=== PATIENT | female | born 1985 | race African-American/Black ===

== ENCOUNTER 2018-12-11 17:42 | Emergency (ER) | payer MEDICARE, MEDICAID ==
[2018-12-11] MEDS ORDERED: predniSONE 20 MG TAB ONE (18:13)
[2018-12-11] MEDS ORDERED: Sodium Chloride 0.9% 1,000 ML ONE (18:13)
[2018-12-11] MEDS ORDERED: Ibuprofen 800 MG TAB ONE (18:13)
[2018-12-11 18:36] LABS: #Basophils 0.2 thou/uL (0.0-0.2); #Lymphocytes 2.3 thou/uL (1.20-3.40); #Monocytes 0.5 thou/uL (0.11-0.59); #Neutrophils 6.9 thou/uL (1.40-6.50); %Basophils 1.7 % (0.0-1.0); %Eosinophils 0.4 % (0.0-10.0); %Lymphocytes 23.1 % (21.0-51.0); %Monocytes 4.7 % (0.0-10.0); Hemoglobin 12.9 g/dL (12.0-16.0); Mean Corpuscular HGB CONC 32.8 g/dL (32.0-36.0); Mean Corpuscular Hemoglobin 30.7 pg (27.0-31.0); Mean Corpuscular Volume 93.8 fL (78.0-98.0); Mean Platelet Volume 8.6 fL (7.4-10.4); Platelet Count 250 thou/uL (130-400); RBC Distribution Width 11.4 % (11.5-14.5); Red Blood Cell (RBC) Count 4.19 mill/uL (4.20-5.40); White Blood Cell (WBC) Count 9.9 thou/uL (4.8-10.8)
[2018-12-11 18:56] LABS: ALT (SGPT) 15 U/L (8-55); AST (SGOT) 18 U/L (5-34); Albumin 4.1 g/dL (3.5-5.0); Alkaline Phosphatase 69 U/L (40-150); Anion Gap 14 mmol/L (10-20); BUN (Urea Nitrogen) 8 mg/dL (7.0-18.7); Bilirubin, Total 0.5 mg/dL (0.2-1.2); Calc. Creatinine Clearance 0 mL/min (70-130); Calcium 9.1 mg/dL (7.8-10.44); Carbon Dioxide 27 mmol/L (22-29); Chloride 105 mmol/L (98-107); Estimated GFR-MDRD 79; Globulin 3.6 g/dL (2.4-3.5); Glucose 107 mg/dL (70-105); Potassium 3.6 mmol/L (3.5-5.1); Protein, Total 7.7 g/dL (6.0-8.3); Sodium 142 mmol/L (136-145)
--- NOTE | 2018-12-11 19:16 | RAD ---
PA AND LATERAL OF THE CHEST: 12/11/18 INDICATION: History of cough. COMPARISON: Prior chest radiograph dated 09/13/04. FINDINGS: There is mild cardiomegaly. No confluent air space opacities evident. No definite pleural effusions n oted. No acute osseous abnormality is evident. IMPRESSION: Mild cardiomegaly. POS: [facility]
== END 2018-12-11 20:26 | disposition home or self-care (01) ==
LOC: MADERS 17:42
DX: J20.9 Acute bronchitis, unspecified (principal); I10 Essential (primary) hypertension; G47.30 Sleep apnea, unspecified; E66.9 Obesity, unspecified; Z79.899 Other long term (current) drug therapy
CPT/HCPCS: 71046; 80053; 83605; 83880; 84484; 85025; 87040; 87081; 87430; 87804; 93005; 94640; 94760; 96360; 96361; J7050; J7512; J7620

== ENCOUNTER 2020-02-04 14:05 | Emergency (ER) | payer MEDICARE, MEDICAID ==
[2020-02-04] MEDS ORDERED: Lidocaine 1% w/Epinephrine 1:100K 20 ML VIAL ONE (14:49)
== END 2020-02-04 15:10 | disposition home or self-care (01) ==
LOC: MADERS 14:05
DX: L02.412 Cutaneous abscess of left axilla (principal); E66.9 Obesity, unspecified; G43.909 Migraine, unspecified, not intractable, without status migrainosus; I10 Essential (primary) hypertension; G47.30 Sleep apnea, unspecified; F41.9 Anxiety disorder, unspecified; F31.9 Bipolar disorder, unspecified; F17.210 Nicotine dependence, cigarettes, uncomplicated; Z79.899 Other long term (current) drug therapy
CPT/HCPCS: 99283

== ENCOUNTER 2021-12-05 11:08 | Outpatient (CLI) | payer MEDICARE, MEDICAID ==
[2021-12-05 11:33] LABS: ALT (SGPT) 19 U/L (8-55); AST (SGOT) 19 U/L (5-34); Albumin 4.2 g/dL (3.5-5.0); Alkaline Phosphatase 85 U/L (40-110); Anion Gap 16 mmol/L (10-20); BUN (Urea Nitrogen) 10 mg/dL (7.0-18.7); Bilirubin, Total 0.6 mg/dL (0.2-1.2); Calc. Creatinine Clearance 0 mL/min (70-130); Calcium 9.5 mg/dL (7.8-10.44); Carbon Dioxide 27 mmol/L (22-29); Cardiac Risk 3.6 (Less than 4.5); Chloride 101 mmol/L (98-107); Cholesterol 174 mg/dl (< 200 Desired); Estimated GFR 100; Glucose 115 mg/dL (70-105); HDL Cholesterol 49 mg/dL (>60 Neg Risk); LDL Cholesterol, Calculated 110 mg/dL; Potassium 4.1 mmol/L (3.5-5.1); Protein, Total 8.2 g/dL (6.0-8.3); Sodium 140 mmol/L (136-145); Triglycerides 75 mg/dL (Less than 150)
== END 2021-12-05 11:09 | disposition home or self-care (01) ==
LOC: MADLABBHPM 11:08 → MADLAB 11:09
PROVIDERS: ATTEND Family Medicine
DX: I10 Essential (primary) hypertension (principal)
CPT/HCPCS: 80053; 80061

== ENCOUNTER 2022-09-02 19:01 | Emergency (ER) | payer MEDICARE, MEDICAID ==
[2022-09-02] MEDS ORDERED: Ondansetron PF 4 MG/2 ML Vial ONE (19:22)
[2022-09-02] MEDS ORDERED: Sodium Chloride 0.9% 1,000 ML ONE ×2 (19:22→20:35)
[2022-09-02 19:54] LABS: BHCG - Serum Negative (NEGATIVE); Pregs Control Background? CLEAR/WHITE (CLR/WHITE); Pregs Control Bar Appear? YES (CONTROL BAR)
[2022-09-02 19:57] LABS: Eosinophils 1 % (0-10); Hemoglobin 13.7 g/dL (12.0-16.0); Lymphocytes 22 % (21-51); MDiff Complete? YES; Mean Corpuscular HGB CONC 31.7 g/dL (32.0-36.0); Mean Corpuscular Hemoglobin 31.1 pg (27.0-31.0); Mean Platelet Volume 10.3 fL (7.4-10.4); Monocytes 5 % (0-10); Neutrophil 72 % (42-75); Platelet Count 251 10x3/uL (130-400); Platelet Morphology Comment Appears Adequate; RBC Distribution Width 12.4 % (11.5-14.5); Red Blood Cell (RBC) Count 4.41 mill/uL (4.20-5.40); White Blood Cell (WBC) Count 6.9 10x3/uL (4.8-10.8)
[2022-09-02 20:02] LABS: ALT (SGPT) 17 U/L (8-55); AST (SGOT) 17 U/L (5-34); Alkaline Phosphatase 66 U/L (40-110); Anion Gap 14 mmol/L (10-20); BUN (Urea Nitrogen) 10 mg/dL (7.0-18.7); Bilirubin, Total 0.7 mg/dL (0.2-1.2); Calc. Creatinine Clearance 0 mL/min (70-130); Calcium 8.8 mg/dL (7.8-10.44); Carbon Dioxide 27 mmol/L (22-29); Chloride 103 mmol/L (98-107); Estimated GFR 98; Globulin 3.1 g/dL (2.4-3.5); Glucose 119 mg/dL (70-105); Potassium 3.9 mmol/L (3.5-5.1); Protein, Total 7.1 g/dL (6.0-8.3); Sodium 140 mmol/L (136-145)
[2022-09-02] MEDS ORDERED: Ketorolac Tromethamine 30 MG/ML VIAL ONE (20:07)
[2022-09-02 20:51] LABS: Bilirubin Negative (Negative); Blood, Urine Moderate (Negative); Clarity Turbid (Clear); Glucose, Urine (Dipstick) Negative (Negative); Ketone, Urine Trace mg/dL (Negative); Leukocyte Moderate (Negative); Nitrite Positive (Negative); Protein, Urine (Dipstick) 30 mg/dL (Neg-Trace); Specific Gravity, Urine 1.025 (1.005-1.030)
[2022-09-02 20:52] LABS: Bacteria/HPF 2+ HPF (None Seen); CAUTI Indications for Culture Urological Procedure; WBC/HPF Greater than 50 HPF (0-3)
[2022-09-02 20:54] LABS: Urine Culture Reflex Yes Yes
[2022-09-02] MEDS ORDERED: predniSONE 20 MG TAB ONE (20:56)
[2022-09-02] MEDS ORDERED: Dicyclomine 10 MG CAP ONE (20:56)
[2022-09-02] MEDS ORDERED: cefTRIAXone (ROCEPHIN) 2 GM VIAL ONE (21:01)
[2022-09-02] MEDS ORDERED: diphenhydrAMINE 25 MG CAP ONE (21:32)
== END 2022-09-02 22:16 | disposition home or self-care (01) ==
LOC: MADERS 19:01
DX: M54.31 Sciatica, right side (principal); N30.00 Acute cystitis without hematuria; E86.0 Dehydration; R19.7 Diarrhea, unspecified; R11.2 Nausea with vomiting, unspecified; E66.9 Obesity, unspecified; I10 Essential (primary) hypertension; F17.210 Nicotine dependence, cigarettes, uncomplicated
CPT/HCPCS: 80053; 81001; 83605; 84703; 85025; 87040; 87086; 96361; 96365; 96375; J0696; J1885; J2405; J7050; J7512

== ENCOUNTER 2022-11-23 19:29 | Emergency (ER) | payer MEDICARE, MEDICAID ==
[2022-11-23 20:38] LABS: SARS-CoV-2 NAA Rapid Test Not Detected (NotDetected)
[2022-11-23 20:51] LABS: Pregnancy Test - Urine (BHCG) Negative (Negative); Pregu Control Background? CLEAR/WHITE (CLR/WHITE); Pregu Control Bar Appear? YES (CONTROL BAR); Specific Gravity 1.022 (1.002-1.036)
[2022-11-23] MEDS ORDERED: diphenhydrAMINE 50 MG/ML VIAL ONE (21:50)
[2022-11-23] MEDS ORDERED: Prochlorperazine 10 MG/2 ML VIAL ONE (21:50)
[2022-11-23] MEDS ORDERED: Lactated Ringer's 1,000 ML ONE (21:50)
[2022-11-23] MEDS ORDERED: Ibuprofen 800 MG TAB ONE (21:50)
[2022-11-23] MEDS ORDERED: Acetaminophen 500 MG TAB ONE (21:50)
[2022-11-23 22:03] LABS: #Basophils 0.2 thou/uL (0.0-0.2); #Lymphocytes 3.1 thou/uL (1.20-3.40); #Monocytes 0.4 thou/uL (0.11-0.59); #Neutrophils 4.3 thou/uL (1.40-6.50); %Basophils 2.4 % (0.0-1.0); %Eosinophils 0.1 % (0.0-10.0); %Lymphocytes 38.1 % (21.0-51.0); %Monocytes 5.5 % (0.0-10.0); %Neutrophils 53.9 % (42.0-75.0); Hematocrit 42.5 % (36.0-47.0); Hemoglobin 13.7 g/dL (12.0-16.0); Mean Corpuscular HGB CONC 32.2 g/dL (32.0-36.0); Mean Corpuscular Hemoglobin 31.6 pg (27.0-31.0); Mean Platelet Volume 9.6 fL (7.4-10.4); Platelet Count 335 10x3/uL (130-400); RBC Distribution Width 12.7 % (11.5-14.5); Red Blood Cell (RBC) Count 4.34 mill/uL (4.20-5.40)
[2022-11-23 22:09] LABS: MONO NEGATIVE CONTROL ZONE White (Negative) (White); MONO POSITIVE CONTROL Pink Line (Positive) (PINK/RED); Mononucleosis NEGATIVE (NEGATIVE)
[2022-11-23 22:15] LABS: INR-International Normal Ratio 1.2; Prothrombin Time 15.3 sec (12.0-14.7)
[2022-11-23 22:15] LABS: Bacteria/HPF 3+ HPF (None Seen); Bilirubin Negative (Negative); Blood, Urine Moderate (Negative); CAUTI Indications for Culture Dysuria,urgency,freq; Clarity Cloudy (Clear); Glucose, Urine (Dipstick) Negative (Negative); Ketone, Urine Negative (Negative); Leukocyte Trace (Negative); Nitrite Positive (Negative); Protein, Urine (Dipstick) Trace mg/dL (Neg-Trace); RBC/HPF 0-3 HPF (0-3); Specific Gravity, Urine 1.025 (1.005-1.030); Urobilinogen 0.2 mg/dL (Less than 2)
[2022-11-23 22:16] LABS: BHCG - Serum Negative (NEGATIVE); Pregs Control Background? CLEAR/WHITE (CLR/WHITE); Pregs Control Bar Appear? YES (CONTROL BAR)
[2022-11-23 22:16] LABS: Urine Culture Reflex Yes Yes
[2022-11-23 22:27] LABS: ALT (SGPT) 16 U/L (8-55); AST (SGOT) 18 U/L (5-34); Albumin 4.1 g/dL (3.5-5.0); Alkaline Phosphatase 64 U/L (40-110); Anion Gap 16 mmol/L (10-20); BUN (Urea Nitrogen) 8 mg/dL (7.0-18.7); Bilirubin, Total 0.8 mg/dL (0.2-1.2); CK (CPK) 162 U/L (29-168); Calc. Creatinine Clearance 0 mL/min (70-130); Calcium 9.3 mg/dL (7.8-10.44); Carbon Dioxide 26 mmol/L (22-29); Chloride 96 mmol/L (98-107); Estimated GFR 76; Globulin 3.9 g/dL (2.4-3.5); Glucose 118 mg/dL (70-105); Potassium 3.5 mmol/L (3.5-5.1); Sodium 134 mmol/L (136-145)
[2022-11-23 22:29] LABS: Troponin I 0.019 ng/mL (< 0.028)
[2022-11-23] MEDS ORDERED: Magnesium 2 GM/50 ML BAG (IN WATER) ONE (22:44)
[2022-11-23] MEDS ORDERED: methylPREDNISolone Sod Succ/PF 125 MG/2 ML VIAL ONE (22:44)
[2022-11-23] MEDS ORDERED: Sodium Chloride 0.9% 100 ML ONE (22:44)
[2022-11-23] MEDS ORDERED: cefTRIAXone (ROCEPHIN) 2 GM VIAL ONE (22:44)
== END 2022-11-24 00:52 | disposition home or self-care (01) ==
LOC: MADERS 19:29
DX: N39.0 Urinary tract infection, site not specified (principal); R50.9 Fever, unspecified; G43.909 Migraine, unspecified, not intractable, without status migrainosus; E66.9 Obesity, unspecified; I10 Essential (primary) hypertension; F17.210 Nicotine dependence, cigarettes, uncomplicated; Z79.899 Other long term (current) drug therapy; Z20.822 Contact with and (suspected) exposure to COVID-19
CPT/HCPCS: 71045; 80053; 81001; 81025; 82550; 83605; 84484; 84703; 85025; 85610; 85730; 86308; 87040; 87077; 87086; 87186; 93005; 94760; 96361; 96374; 96375; J0696; J0780; J1200; J2930; J3475; J7120